=== PATIENT | female | born 1970 | race Caucasian/White ===

== ENCOUNTER → 2017-02-04 | Outpatient (CLI) | payer OTHER ==
[~2017-02-04] MED LIST: CITRACAL+D(315M1 TAB PO; THERAGRAN-M1 TAB PO; TYLENOL EXTRA500 MG PO; VITAMIN B-121000 MCG PO
== END | disposition disaster alternative care site (69) ==
LOC: GBCOE 07:30
DX: Z12.31 Encounter for screening mammogram for malignant neoplasm of breast (principal)
CPT/HCPCS: G0202